=== PATIENT | female | born 1930 | race American Indian/Alaskan Native ===

== ENCOUNTER 2017-12-20 10:00 | Outpatient (CLI) | payer MEDICARE ==
[2017-12-20] MEDS ORDERED: XYLOCAINE TOPICAL 4% TP ONE ×2 (10:50→15:18)
== END 2017-12-20 10:01 | disposition home or self-care (01) ==
LOC: WOUND 10:00
PROVIDERS: ATTEND Surgery
DX: L89.154 Pressure ulcer of sacral region, stage 4 (principal); G30.9 Alzheimer's disease, unspecified; F02.80 Dementia in other diseases classified elsewhere, unspecified severity, without behavioral disturbance, psychotic disturbance, mood disturbance, and anxiety; I11.0 Hypertensive heart disease with heart failure; I50.9 Heart failure, unspecified; E78.00 Pure hypercholesterolemia, unspecified
CPT/HCPCS: 99205; G0463

== ENCOUNTER 2017-12-27 10:05 | Outpatient (CLI) | payer MEDICARE ==
[2017-12-27] MEDS ORDERED: XYLOCAINE TOPICAL 4% TP ONE (10:50)
[2017-12-27] MEDS ORDERED: SILVER NITRATE TP ONE (11:23)
== END 2017-12-27 10:06 | disposition home or self-care (01) ==
LOC: WOUND 10:05
PROVIDERS: ATTEND Surgery
DX: L89.154 Pressure ulcer of sacral region, stage 4 (principal); L89.513 Pressure ulcer of right ankle, stage 3; G30.9 Alzheimer's disease, unspecified; F02.80 Dementia in other diseases classified elsewhere, unspecified severity, without behavioral disturbance, psychotic disturbance, mood disturbance, and anxiety; I11.0 Hypertensive heart disease with heart failure; I50.9 Heart failure, unspecified; E78.00 Pure hypercholesterolemia, unspecified